=== PATIENT | male | born 1985 | race Caucasian/White ===

== ENCOUNTER 2016-05-26 10:06 | Emergency (ER) | payer OTHER ==
[2016-05-26 10:30] VITALS: TEMP 98.1; BMI 22.5
--- NOTE | 2016-05-26 12:42 | EDPRACDOC ---
- General Information Chief Complaint: Flu-Like Symptoms Stated Complaint: CONGESTION/COUGH Time Seen by Provider: 05/26/16 12:29 Information Source: Patient Mode Of Arrival: Car Home Medications: Home Medications Amoxicillin Trihydrate [Amoxicillin] 500 mg PO TID #30 tab 05/26/16 Ibuprofen 600 mg PO TID #20 tablet 05/26/16 Ondansetron HCl [Zofran] 4 mg PO Q6H PRN #20 tab 05/26/16 Prednisone [Deltasone, Orasone] 2 tabs PO DAILY #20 tab 05/26/16 Allergies/Adverse Reactions: Allergies Allergy/AdvReac Type Severity Reaction Status Date / Time No Known Allergies Allergy Verified 05/26/16 10:30 - History of Present Illness Symptoms Started: 1 WEEK HPI: PT PRESENTS TODAY WITH 1 WEEK OF COUGH/CONGESTION, FATIGUE AND POST-TUSSIVE VOMITING. NON-SMOKER. DENIES ENT SYMPTOMS, FEVER, JEAN, ABD PAIN, DIARRHEA. NO PMH/MEDS. MILD CHEST WALL PAIN AND LARA. NO APPARENT DISTRESS. Symptoms: Reports: Cough, Vomiting Recent Medications: Reports: None Relevant History Of: Reports: None Shortness of Breath: Mild Cough Frequency: Persistent Cough Description: Reports: Productive, Strong, Congested Rhinorrhea: Reports: None Ear Symptoms: Reports: None Associated Signs and Symptoms: Reports: Cough ED Past Medical History - History Reviewed Yes Nurses notes reviewed and agree except as marked - Patient Medical History Psychological History: Denies: Depression Surgical History: Reports: Appendectomy - Social Medical History Smoking Status: Never smoker EDM Review of Systems - Review of Systems ROS Negative Except as Marked: Yes All systems reviewed and were negative except as marked Constitutional: Fatigue Eyes: No Symptoms Reported Ears: No Symptoms Reported Throat: No Symptoms Reported Nose: No Symptoms Reported Respiratory: Cough, Shortness of Breath, Wheezing Cardiovascular: No Symptoms Reported Gastrointestinal: No Symptoms Reported Neurological: No Symptoms Reported Musculoskeletal: Chestwall Integumentary: No Symptoms Reported - Physical Exam Constitutional: Alert (Awake), No apparent distress Oriented to: Time, Person, Place Last recorded Vital Signs: Last Vital Signs Temp 98.1 F 05/26/16 10:28 Pulse 110 05/26/16 10:28 Resp 18 05/26/16 10:28 BP 162/97 05/26/16 10:28 Pulse Ox 95 05/26/16 10:28 Oxygen Pulse Oxygen Saturation 95 O2 Device Room Air Oxygen Flow Rate Fraction of Inspired Oxygen ( FIO2) - HEENT Head: Normal Eye Exam: Normal Oropharynx: Normal Tympanic Membrane: Normal ENT EAC: Normal Nose: No Symptoms Reported Neck: Normal, Denies Pain, Midline - Respiratory/Cardiovascular Respiratory: Rhonchi, Wheezes Cardiovascular: Normal - GI Palpation: Normal Tenderness: Non tender - Musculoskeletal Back: Normal Extremities: Normal - Integumentary Skin: Normal Lymphatics: Normal - Neurologic Cerebellar: Normal Mood Description: Normal Thought: Coherent Perception: Normal Decision Time to Discharge: 12:56 - Departure Disposition: Home Condition: Stable Final Diagnosis: Bronchopneumonia Instructions: Community Acquired Pneumonia (ED) Education/Counseling Given To: Patient Education/Counseling Given Regarding: Diagnosis, Treatment, Follow Up Referrals: None,No Provider [Primary Care Provider] - One Week [facility] [NonStaff] - One Week Prescriptions: New Amoxicillin Trihydrate [Amoxicillin] 500 mg PO TID #30 tab Ibuprofen 600 mg PO TID #20 tablet Prednisone [Deltasone, Orasone] 2 tabs PO DAILY #20 tab Ondansetron HCl [Zofran] 4 mg PO Q6H PRN #20 tab PRN Reason: Nausea/Vomiting Additional Instructions: REST AND PLENTY OF FLUIDS. FOLLOW UP WITH PCP IN 2-3 DAYS IF NEEDED.
--- NOTE | 2016-05-26 12:43 | DIRPT ---
CLINICAL DATA: Cough and congestion for 1 week. EXAM: CHEST 2 VIEW COMPARISON: 03/16/2015 FINDINGS: Two views of the chest demonstrate slightly low lung volumes. There is no focal airspace disease or pulmonary edema. Heart and mediastinum are within normal limits. The trachea is midline. No pleural effusions. No acute bone abnormality. IMPRESSION: No acute cardiopulmonary disease. Electronically Signed By: Maxim Perez M.D. On: 05/26/2016 12:41
[2016-05-26 13:18] VITALS: BP 154/90; PULSE 105
== END 2016-05-26 13:15 | disposition home or self-care (01) ==
LOC: EDMC 10:06
DX: J18.0 Bronchopneumonia, unspecified organism (principal)
CPT/HCPCS: 71020; 99282